=== PATIENT | male | born 1955 | race Caucasian/White ===

== ENCOUNTER → 2019-07-20 | Outpatient (CLI) | payer OTHER ==
[~2019-07-20] MED LIST: ASPIR-LOW81 MG PO; BENICAR40 MG PO; BETAPACE 80MG80 MG PO; CHANTIX1 MG PO; CRESTOR10 MG PO; FLECAINIDE PO; ZYBAN150 MG PO
== END ==
LOC: COL.RAD 10:41
DX: Z01.812 Encounter for preprocedural laboratory examination (principal); I65.23 Occlusion and stenosis of bilateral carotid arteries; J43.9 Emphysema, unspecified
CPT/HCPCS: Q9967

== ENCOUNTER → 2019-08-08 | Outpatient (CLI) | payer OTHER | LOC: ZCOL.LAB 12:59 | DX: Z20.828 Contact with and (suspected) exposure to other viral communicable diseases (principal) ==

== ENCOUNTER → 2019-08-11 | Outpatient (CLI) | payer OTHER ==
[2019-08-11 10:40] LABS: HEMATOCRIT 41.9 % (42.0-52.0); HEMOGLOBIN 13.8 g/dl (13.5-18.0); MEAN CELL VOLUME 95 fl (80.0-100.0); MEAN CORPUSCULAR HEMOGLOBIN 31 pg (27.0-31.0); MEAN CORPUSCULAR HGB CONC 33 g/dl (33.0-37.0); MEAN PLATELET VOLUME 9.8 fl (7.4-10.4); PLATELET COUNT 253 K/mm3 (130-400); RED BLOOD COUNT 4.41 M/mm3 (4.20-5.60); REDCELL DISTRIBUTION WIDTH-CV 13.2 % (11.5-14.5)
[2019-08-11 10:58] LABS: CALCIUM 9.1 mg/dL (8.4-10.2); CREATININE, serum 1.34 (0.66-1.25); POTASSIUM 4.6 mmol/L (3.4-5.0)
== END | disposition still patient (30) ==
LOC: COL.LAB 08-10 14:51
PROVIDERS: Internal Medicine Interventional Cardiology
DX: Z01.89 Encounter for other specified special examinations (principal)

== ENCOUNTER → 2020-11-14 | Outpatient (CLI) | payer MEDICARE | LOC: COL.RAD 11:26 | DX: I65.23 Occlusion and stenosis of bilateral carotid arteries (principal) | CPT/HCPCS: Q9967 ==

== ENCOUNTER 2021-04-29 10:30 | Outpatient (RCR) | payer MEDICARE | END 2021-04-29 12:59 | disposition home or self-care (01) | LOC: MKS.ESL.PT 10:30 | DX: M54.50 Low back pain, unspecified (principal) ==

== ENCOUNTER → 2021-08-21 | Outpatient (CLI) | payer MEDICARE | LOC: COL.RAD 10:29 | DX: Z01.812 Encounter for preprocedural laboratory examination (principal); I65.23 Occlusion and stenosis of bilateral carotid arteries; Z98.890 Other specified postprocedural states ==

== ENCOUNTER → 2021-09-17 | Outpatient (CLI) | payer MEDICARE | LOC: COL.RAD 13:00 | DX: I65.23 Occlusion and stenosis of bilateral carotid arteries (principal); Z98.890 Other specified postprocedural states | CPT/HCPCS: Q9967 ==

== ENCOUNTER 2023-02-20 06:55 | Day surgery (SDC) | payer MEDICARE ==
[~2023-02-20] VITALS: Ht 167.6 cm; Wt 64.8 kg
[~2023-02-20 06:55] MED LIST changes: +LR 1,000 ML IV SCH; +Ondansetron 4 MG/2 ML VIAL IV PRN
[2023-02-20] MEDS ORDERED: ASPIRIN 81M81 MG/TA2 PO (09:06)
[2023-02-20] MEDS ORDERED: NORVASC 5MG5 MG/TAB PO (09:07)
[2023-02-20] MEDS ORDERED: BETAPACE160 MG PO (09:07)
[2023-02-20] MEDS ORDERED: PLAVIX 75MG TAB75 MG PO (09:08)
[2023-02-20] MEDS ORDERED: LIPITOR20 MG PO (09:08)
[2023-02-20] MEDS ORDERED: COZAAR100 MG PO (09:08)
[2023-02-20 09:11] VITALS: BP 161/74; PULSE 68; TEMP 97.1
[2023-02-20] MEDS ORDERED: Lidocaine PF 2% (20 MG/ML) 5 ML VIAL ONE (09:25)
[2023-02-20] MEDS ORDERED: Glycopyrrolate 0.2 MG/ML 1 ML VIAL ONE (09:25)
[2023-02-20 10:05] VITALS: BP 96/64; PULSE 77; TEMP 98.2
[2023-02-20 10:15] VITALS: BP 88/65; PULSE 73
--- NOTE | 2023-02-20 10:45 | NUR ---
At 1005 patient resturned via cart to recliner in bay 3. A&O. VSS-see floswheet. Given warm blanket and call light in reach. present in room. At 1045 pt tolerated oral intake. VS remain stable. IV removed, pressure dressing applied. Dc teaching completed, verbalized understanding. Taken via wheelchair to private vehicle for dc home with driving.
== END 2023-02-20 10:45 | disposition home or self-care (01) ==
LOC: SDCO 06:55
DX: Z12.11 Encounter for screening for malignant neoplasm of colon (principal); D12.3 Benign neoplasm of transverse colon; D12.8 Benign neoplasm of rectum; F17.290 Nicotine dependence, other tobacco product, uncomplicated
CPT/HCPCS: J2704; J7120